=== PATIENT | male | born 1965 | race Caucasian/White ===

== ENCOUNTER 2016-12-13 08:35 | Emergency (ER) | payer OTHER | END 2016-12-13 11:51 | disposition home or self-care (01) | LOC: ER 08:35 | DX: S82.402A Unspecified fracture of shaft of left fibula, initial encounter for closed fracture (principal); X50.0XXA Overexertion from strenuous movement or load, initial encounter; Y92.019 Unspecified place in single-family (private) house as the place of occurrence of the external cause; J44.9 Chronic obstructive pulmonary disease, unspecified; F17.210 Nicotine dependence, cigarettes, uncomplicated; Z79.899 Other long term (current) drug therapy | CPT/HCPCS: 29515; 73610; 99070; 99283-25 ==

== ENCOUNTER 2017-02-06 18:02 | Emergency (ER) | payer OTHER | END 2017-02-06 19:16 | disposition left against medical advice (07) | LOC: ER 18:02 | DX: Z53.21 Procedure and treatment not carried out due to patient leaving prior to being seen by health care provider (principal) | CPT/HCPCS: 99211 ==